=== PATIENT | male | born 1995 | race Native Hawaiian/Other Pacific Islander ===

== ENCOUNTER 2022-01-13 01:28 | Emergency (ER) | payer SELFPAY ==
--- NOTE | 2022-01-13 01:43 | ED Integumentary General ---
General Stated Complaint: RT HAND INJURY Source: patient Exam Limitations: no limitations History of Present Illness Date Seen by Provider: Jan 13, 2022 Time Seen by Provider: 01:31 Initial Comments Patient to the ER by private conveyance with chief complaint of 3 hours prior he was trying to open a window that was broken and somehow ended up getting the ri ght hand lateral to the fifth metacarpal. He is not up-to-date on his tetanus vaccine. He is not having any limitation to his range of motion of his fingers nor is he experiencing numbness or tingling. Allergies and Home Medications Allergies Coded Allergies: No Known Drug Allergies (Unverified , 01/13/22) Patient Home Medication List Home Medication List Reviewed: Yes Review of Systems Review of Systems Constitutional: No chills, No diaphoresis EENTM: No ear discharge, No ear pain Respiratory: No cough, No short of breath Cardiovascular: No edema, No palpitations Gastrointestinal: No abdominal pain, No nausea Genitourinary: No discharge, No dysuria All Other Systems Reviewed Negative Unless Noted: Yes Past Cbnvcgv-Gkkote-Xitglm Hx Patient Social History Tobacco Use?: No Use of E-Cig and/or Vaping dev: No Physical Exam Vital Signs Vital Signs - First Documented 01/13/22 01:41 Pulse 81 Resp 14 B/P (MAP) 139/84 (102) Pulse Ox 96 O2 Delivery Room Air Capillary Refill : General Appearance: WD/WN, no apparent distress HEENT: PERRL/EOMI, pharynx normal Neck: full range of motion, normal inspection Cardiovascular: normal peripheral pulses, regular rate, rhythm, no edema Extremities: other (Laceration to the right hand lateral palm beside the fifth metacarpal 3 cm long into the subcutaneous tissue. Tendon motion is intact.) Neurologic/Psychiatric: no motor/sensory deficits, alert, normal mood/affect, oriented x 3 Procedures/Interventions Wound Location: Upper Extremities Other Wound Location Right hand on the margin of the fifth metacarpal Wound Length (cm): 3 Wound's Depth, Shape: linear, sub Q Wound Explored: no foreign body removed Irrigated w/ Saline (ccs): 150 Betadine Prep?: Yes (Chlorhexidine) Anesthesia: 1% Lidocaine Volume Anesthetic (ccs): 3 Wound Debrided: minimal Suture: Ethlion Suture Size: 4-0 Number of Sutures: 4 Layer Closure?: 1 Number Deep Layer Sutures: 0 Sterile Dressing Applied?: Yes Progress/Results/Core Measures Results/Orders My Orders Orders - KAEL DURON Lidocaine 1% Inj 20 Ml (Xylocaine 1% Inj (01/13/22 01:45) Dipht,Pertuss(Acell),Tet Adult (Boostrix (01/13/22 01:45) Medications Given in ED Current Medications Medications Dose Ordered Sig/Dilma Route Start Time Stop Time Status Last Admin Dose Admin Diphtheria/ Tetanus/Acell Pertussis 0.5 ml ONCE ONCE IM 01/13/22 01:45 01/13/22 01:46 DC 01/13/22 01:51 0.5 ML Lidocaine HCl 20 ml ONCE ONCE INJ 01/13/22 01:45 01/13/22 01:46 DC 01/13/22 01:51 20 ML Vital Signs/I&O 01/13/22 01:41 Pulse 81 Resp 14 B/P (MAP) 139/84 (102) Pulse Ox 96 O2 Delivery Room Air Progress Progress Note : Time: 01:42 Progress Note Tetanus vaccine and cleansed with Hibiclens and sterile water. Departure Impression Primary Impression: Laceration of right hand Qualified Codes: S61.411A - Laceration without foreign body of right hand, initial encounter Disposition: 01 HOME, SELF-CARE Condition: Improved Departure-Patient Inst. Decision time for Depature: 02:02 Referrals: NO,LOCAL PHYSICIAN (PCP/Family) Primary Care Physician Patient Instructions: Laceration Repair With Stitches (DC) Add. Discharge Instructions: Keep the hand clean with regular soap and water. Is okay to wash your hand or take a shower but do not submerse in a bathtub, hot tub, pool, river or alvarez etc. until the sutures are out. Dressed the hand with a dressing of gauze or Band-Aid and triple antibiotic ointment if you are going to be in a dirty environment. Change the dressing at least daily or more frequently if it becomes soiled. If you are in a clean environment such as at home and the wound is not draining then you can leave it open to air and it will heal faster. Return to the ER in 10 to 14 days to have the sutures removed. Return to the ER sooner for reexamination if it shows signs of infection such as redness going up your arm, purulence coming from the wound, fever or nausea and vomiting. Cephalexin 500 mg twice a day for 3 days to prevent infection. Scripts Cephalexin (Cephalexin) 500 Mg Tablet 500 MG PO BID for 5 Days, #10 TAB 0 Refills Prov: KAEL DURON 01/13/22 Work/School Note: Work Release Form Date Seen in the Emergency Department: Jan 13, 2022 Return to Work: Jan 13, 2022 Restrictions: Need Release from Doctor Other Restrictions Listed Below: Wounds remain dressed, clean and dry until sutures are out. KAEL DURON Jan 13, 2022 01:43
[2022-01-13] MEDS ORDERED: LIDOCAINE 1% INJ 20 ML VIAL INJ ONE (01:45)
[2022-01-13] MEDS ORDERED: TETANUS,DIPTH,PERTUSS P/F (BOOSTRIX) 0.5 ML VIAL IM ONE (01:45)
[2022-01-13] MEDS ORDERED: CEPH500T PO (02:03)
[2022-01-13 02:11] VITALS: BP 139/84
== END 2022-01-13 02:12 | disposition home or self-care (01) ==
LOC: ER 01:32
DX: S61.411A Laceration without foreign body of right hand, initial encounter (principal); Z23 Encounter for immunization; W26.8XXA Contact with other sharp object(s), not elsewhere classified, initial encounter
CPT/HCPCS: 12042; 90715

== ENCOUNTER 2022-01-23 12:21 | Emergency (ER) | payer SELFPAY ==
[~2022-01-23] VITALS: Ht 180 cm; Wt 80.0 kg
[~2022-01-23 12:21] MED LIST: CEPH500T PO
[2022-01-23 13:25] VITALS: BP 110/65
== END 2022-01-23 13:25 | disposition home or self-care (01) ==
LOC: EDUNIT# 12:21 → ER 12:23
DX: Z48.02 Encounter for removal of sutures (principal)